=== PATIENT | female | born 1965 | race African-American/Black ===

== ENCOUNTER 2020-07-20 12:33 | Emergency (ER) | payer OTHER ==
[~2020-07-20] VITALS: Ht 162.6 cm; Wt 77.1 kg
[~2020-07-20 12:33] MED LIST: LEVOTHROID75 MCG PO; NAPROSYN500 MG PO; ULTRAM 50MG TAB50 MG PO
[2020-07-20] MEDS ORDERED: NOHOMEMEDICATIONS (12:42)
[2020-07-20 12:59] LABS: ABSOLUTE NEUTROPHILS 4.9 thou/uL (1.4-8.2); BASOPHILS 0.5 % (0.0-2.0); EOSINOPHILS 1.3 % (0.0-3.0); HEMATOCRIT 41.3 % (37.0-47.0); HEMOGLOBIN 13.7 gm/dL (12.0-15.0); MCH 29.1 pg (26.0-34.0); MCV 88.1 fL (80.0-100.0); MONOCYTES 7.7 % (1.0-8.0); PLATELET COUNT 231 thou/uL (150-400); POLYS 56.5 % (36.0-66.0); RBC 4.69 mil/uL (4.20-5.00); RDW 13.2 % (10.5-14.5); WBC 8.7 thou/uL (4.0-11.0)
[2020-07-20 13:14] LABS: ANION GAP 11 mmol/L (7-16); BUN 12 mg/dL (7-18); CALCIUM 9.3 mg/dL (8.5-10.1); CHLORIDE 103 mmol/L (98-107); CO2 28 mmol/L (21-32); CREATININE 0.9 mg/dL (0.6-1.0); GLUCOSE 96 mg/dL (74-106); POTASSIUM 3.4 mmol/L (3.5-5.1); SODIUM 142 mmol/L (136-145)
[2020-07-20 13:22] LABS: SGOT 17 U/L (15-37); SGPT 28 U/L (14-59); TOTAL BILIRUBIN 0.4 mg/dL (0.2-1.0); TOTAL PROTEIN 7.8 g/dL (6.4-8.2); TROPONIN-I <0.06 ng/mL (<0.06)
--- NOTE | 2020-07-20 15:40 | EKG ---
[address] [address] ELECTROCARDIOGRAM REPORT Name: AUSTIN PATRICIA Room #: [facility]#: [id number] Admission: 07/20/20 Attend Phys: Discharge: Date of : 61 Report #: [id number] [facility] ED Test Date: 2020-07-20 Test Time: 12:37:45 Pat Name: AUSTIN PATRICIA Department: Room: Gender: F Branch Services Manager: MAMI : 1965 Requested By: Lolis Lazo Order Number: [id number] MD: Dev Valdes Measurements Intervals Harvey Rate: 56 P: 36 MA: 157 QRS: 12 QRSD: 91 T: -38 QT: 463 QTc: 447 Interpretive Statements Sinus rhythm Consider left ventricular hypertrophy Nonspecific T abnormalities, inferior leads No previous ECG available for comparison Electronically Signed On 07-20-2020 15:40:07 [employer] by Dev Valdes [email or web address] <ELECTRONICALLY SIGNED> By: Dev Valdes MD 07/20/20 1540 1237 1237 Dev Valdes MD /EPI
[2020-07-20 16:22] LABS: URINE BILIRUBIN NEGATIVE (Negative); URINE BLOOD 2+ (Negative); URINE CLARITY CLEAR; URINE COLOR YELLOW; URINE GLUCOSE-RANDOM* NEGATIVE (Negative); URINE KETONES NEGATIVE (Negative); URINE LEUKOCYTES-REFLEX NEGATIVE (Negative); URINE PROTEIN (DIPSTICK) NEGATIVE (Negative); URINE UROBILINOGEN 0.2 E.U./dl (0.2-1.0)
[2020-07-20 16:27] LABS: URINE NITRITE-REFLEX POSITIVE (Negative)
[2020-07-20 16:36] LABS: BACTERIA-REFLEX >30 Many /HPF (None Seen); CASTS None Seen /LPF (None Seen); SQUAMOUS >10 Many /LPF (0-3); URINE RBC 0-2 Rare /HPF (0-2); URINE WBC-REFLEX 0-5 Rare /HPF (0-5)
[2020-07-20 16:50] LABS: CRYSTALS None Seen /LPF (None Seen)
[2020-07-20] MEDS ORDERED: KEFLEX500 M1 PO ×2 (17:08→17:21)
[2020-07-20] MEDS ORDERED: FLEXERIL PO ×2 (17:08→17:21)
[2020-07-20 17:24] VITALS: BP 143/77
== END 2020-07-20 17:24 | disposition home or self-care (01) ==
LOC: ER 12:33
PROVIDERS: Emergency Medicine
DX: R07.89 Other chest pain (principal); N39.0 Urinary tract infection, site not specified; I10 Essential (primary) hypertension; J45.909 Unspecified asthma, uncomplicated; F17.210 Nicotine dependence, cigarettes, uncomplicated